=== PATIENT | male | born 1985 | race Caucasian/White ===

== ENCOUNTER 2019-09-22 15:37 | Emergency (ER) | payer MEDICAID ==
[~2019-09-22] VITALS: Ht 175.3 cm; Wt 68.9 kg
[2019-09-22 15:44] VITALS: BP 156/63; Ht 175.3 cm; Wt 68.9 kg
== END 2019-09-22 17:30 | disposition home or self-care (01) ==
LOC: ED 15:37
DX: S81.852A Open bite, left lower leg, initial encounter (principal); Z88.0 Allergy status to penicillin; W54.0XXA Bitten by dog, initial encounter; Y93.89 Activity, other specified; Y92.89 Other specified places as the place of occurrence of the external cause; Y99.8 Other external cause status
CPT/HCPCS: 90715; J1885